=== PATIENT | female | born 1995 | race Caucasian/White ===

== ENCOUNTER → 2020-07-29 | Outpatient (CLI) | payer BC, OTHER ==
[~2020-07-29] MED LIST: HYDHCL25 PO; Naprosyn500 MG PO
== END | disposition home or self-care (01) ==
LOC: LAB SHORT 14:38 → LAB 14:38
DX: D22.62 Melanocytic nevi of left upper limb, including shoulder (principal); D22.61 Melanocytic nevi of right upper limb, including shoulder; D22.72 Melanocytic nevi of left lower limb, including hip
CPT/HCPCS: 88305